=== PATIENT | male | born 1965 | race Caucasian/White ===

== ENCOUNTER 2017-07-02 19:23 | Emergency (ER) | payer SELFPAY ==
[~2017-07-02] VITALS: Ht 175.3 cm; Wt 88.5 kg
[2017-07-02 19:28] VITALS: TEMP 36.5; Ht 175.3 cm; Wt 88.5 kg
--- NOTE | 2017-07-02 19:48 | EMERGENCY ROOM VISIT NOTE ---
ED Visit Note First contact with patient: 19:32 CHIEF COMPLAINT: Toothache HISTORY OF PRESENT ILLNESS: This 51-year-old male patient presented to the emergency department a toothache in the left front incisor that has been going on for the last few days. The patient unfortunately has gotten dental infections in the past. He says this feels similar. He denies any fever or chills. The patient is a regional owner operator truck driver. He is unable to get home to see his dentist. He also notes that he is out of his blood pressure medications. The patient went to [facility] this morning for the dental problem. He was given Pen-Vee K. He was not given anything for pain. REVIEW OF SYSTEMS: A 6 system review of systems was completed with positives and pertinent negatives listed in the HPI. ALLERGIES: No known drug allergies MEDICATIONS: Reviewed PMH: Hypertension SOCIAL HISTORY: He does use tobacco products. Denies alcohol. PHYSICAL EXAM: Vitals are noted on the nurse's note and reviewed by myself. Vital signs stable. Temperature 36.5C orally. GENERAL: 51-year-old male, in no acute distress, nondiaphoretic, well-developed well-nourished. Mouth: The left incisor tooth is very carious and the gum is swollen and tender around it, without any discharge or signs of an abscess. The remainder of the pharynx and tonsils are without erythema, edema, or exudate. The airway is patent. There is no facial swelling, cervical or submandibular lymphadenopathy. The patient appears uncomfortable and in pain. The patient has overall very poor dental hygiene. EARS: External auditory canals clear, tympanic membranes pearly harp without erythema or effusion bilaterally. ED COURSE: The patient was seen and examined. He was given 1 dose of lisinopril. He was also given a whole pack of oxycodone. Discharge instructions were reviewed, and he was discharged in good condition DIAGNOSIS: Odontalgia, HTN DISCHARGE INSTRUCTIONS & TREATMENT: Please take penicillin 500 mg 4 times daily for 10 days. Please take ibuprofen 800 mg every 8 hours as needed for pain Oxycodone Immediate Release (OxyIR) 5mg: Take 1-2 pills every four hours for pain. Avoid alcohol, operating machinery or dangerous equipment, working on ladders or roofs, DRIVING, or situations where being under the influence may be dangerous. It is recommended to use an yokx-pzm-cplvivk stool softener such as Colace, 100mg twice daily while taking this medication to avoid constipation. This may be taken with ibuprofen Please follow-up with your primary care physician and dentist as soon as possible. Return to the emergency department if you have any of the following symptoms: -Fever -Facial swelling -Severe pain
[2017-07-02] MEDS ORDERED: OXYC1TAB3 PO (20:00)
[2017-07-02] MEDS ORDERED: OXYCODONE IR HOME PACK PO ONE (20:00)
[2017-07-02] MEDS ORDERED: PENI-82 PO (20:00)
[2017-07-02] MEDS ORDERED: LISINOPRIL 5 MG TAB PO ONE (20:00)
[2017-07-02] MEDS ORDERED: LISI10TA PO (20:00)
[2017-07-02 20:18] VITALS: BP 187/115; PULSE 83; O2SAT 98
== END 2017-07-02 20:19 | disposition home or self-care (01) ==
LOC: C.EDB 19:27 → C.EDD 20:19
DX: K08.89 Other specified disorders of teeth and supporting structures (principal); I10 Essential (primary) hypertension